=== PATIENT | male | born 1980 | race Caucasian/White ===

== ENCOUNTER 2018-03-24 14:58 | Emergency (ER) | payer MEDICARE, MEDICAID ==
[~2018-03-24 14:58] MED LIST: DIA5 PO; FLU20 PO; IBU200 PO; IBU600 PO; LOR10/325 PO; OLAN15TA18 PO; OLAN20TA17 PO; OXYM15MI14 NS; PAN20 PO; QUET50TA21 PO; [UNRECOGNIZED DRUG - CODE] PO
--- NOTE | 2018-03-24 15:03 | ER Report ---
History and Physical Time Seen By MD: 15:03 HPI/ROS 37-year-old male with a known mental health history. He has been admitted to [facility] previously. He presents to the emergency department with a friend stating that she is perseverating about witnessing a harder many years ago in [place]. Both the patient and his friend state that this is normal behavior for him, but both the patient and his friend were concerned that he may be becoming more delusional and psychotic than his baseline today. It seems as if a series of events happen today to cause him to be off his baseline. He 1st went to the police department to try to "clear his name.' He then ran into another friend of his to had handcuffs as a ruelas chain, and per the patient and his friend that makes him uncomfortable. He otherwise has no symptoms of infection. No trauma. He takes Zyprexa daily, and is compliant with medication. He denies drugs or alcohol, but admits to smoking cigarettes daily[place] who is in the emergency department with him. He does have a counselor at the [facility]. He denies SI or HI. Allergies: Coded Allergies: haloperidol (Verified Allergy, Severe, ANAPHYLAXIS, 03/24/18) Penicillins (Verified Allergy, Mild, CHILDHOOD, 03/24/18) Home Meds Active Scripts Quetiapine Fumarate (SEROQUEL) 50 Mg Tablet, 50 MG PO QHS for 30 Days Prov:LYNN TITUS MD 03/24/18 Reported Medications Hydroxyzine Hcl (HYDROXYZINE HCL) 10 Mg Tablet, 10 MG PO PRN for ANXIETY 03/24/18 Esomeprazole Magnesium (Nexium 24Hr) 20 Mg Capsule.dr, 20 MG PO QDAY 03/24/18 Olanzapine (ZYPREXA) 10 Mg Tablet, 10 MG PO HS 03/24/18 Discontinued Reported Medications Quetiapine Fumarate (Seroquel) 50 Mg Tablet, 50 MG PO QHS, 0 Refills for psychosis 06/26/10 Fluoxetine Hcl (Prozac) 20 Mg Cap, 30 MG PO QAM, #30 1 Refill 06/26/10 Olanzapine (Zyprexa) 20 Mg Tablet, 20 MG PO QHS, #30 1 Refill 06/26/10 Pantoprazole Sod (Protonix) 20 Mg Tabec, 20 MG PO BID, #60 1 Refill 06/26/10 Hx Smoking: Yes Hx Substance Use Disorder: Yes (monthly marijuana use) Hx Alcohol Use: No Constitutional Vital Sign - Last 24 Hours 03/24/18 03/24/18 03/24/18 03/24/18 14:58 15:11 15:12 15:28 Temp 99.4 Pulse ??? 103 99 Resp 12 B/P (MAP) 142/103 (116) 142/103 Pulse Ox 94 95 O2 Delivery Room Air 03/24/18 03/24/18 03/24/18 03/24/18 15:30 15:58 16:00 16:28 Pulse 91 96 B/P (MAP) 135/99 (111) 121/83 (96) Pulse Ox 93 93 Physical Exam General Appearance: The patient is alert, has no immediate need for airway protection and no current signs of toxicity. Eyes: Pupils equal and round no injection. Respiratory: Chest is non tender, lungs are clear to auscultation. Cardiac: regular rate and rhythm Gastrointestinal: Abdomen is soft and non tender, no masses, bowel sounds normal. Musculoskeletal: Neck: Neck is supple and non tender. Skin: No rashes or lesions. Psych: No SI/HI, no mynor DIFFERENTIAL DIAGNOSIS: After history and physical exam differential diagnosis was considered for SI/HI, acute psychosis, mynor, infection, toxidrome Medical Decision Making Data Points Result Diagram: 03/24/18 1616 03/24/18 1616 Laboratory Hematology Test 03/24/18 15:02 03/24/18 16:16 Urine Color Yellow Urine Clarity Clear Urine pH 7.0 pH (4.8-9.5) Urine Specific [place] 1.015 Urine Protein Negative mg/dL (NEGATIVE) Urine Glucose (UA) Negative mg/dL (NEGATIVE) Urine Ketones Negative mg/dL (NEGATIVE) Urine Blood Negative (NEGATIVE) Urine Nitrite Negative (NEGATIVE) Urine Bilirubin Negative (NEGATIVE) Urine Urobilinogen Negative mg/dL (0.2-1.9) Urine Leukocyte Esterase Negative (NEGATIVE) Urine RBC <1 /HPF (0-2/HPF) Urine WBC <1 /HPF (0-5/HPF) Urine Squamous Epithelial Cells None /LPF (</=FEW) Urine Bacteria Negative /HPF (NONE-FEW) Urine Mucus None /HPF (NONE-FEW) Urine Opiates Screen Negative Urine Barbiturates Screen Negative Ur Tricyclic Antidepressants Screen Negative Urine Phencyclidine Screen Negative Urine Amphetamines Screen Negative Urine Benzodiazepines Screen Negative Urine Cocaine Screen Negative Urine Cannabinoids Screen Negative Red Blood Count 5.24 M/uL (4.00-5.60) Mean Corpuscular Volume 94.7 fL (80.0-96.0) Mean Corpuscular Hemoglobin 32.6 pg (26.0-33.0) Mean Corpuscular Hemoglobin Concent 34.4 g/dL (32.0-36.0) Red Cell Distribution Width 13.5 % (11.5-14.5) Mean Platelet Volume 9.1 fL (7.2-11.1) Neutrophils (%) (Auto) 51.8 % (39.4-72.5) Lymphocytes (%) (Auto) 38.8 % (17.6-49.6) Monocytes (%) (Auto) 8.0 % (4.1-12.4) Eosinophils (%) (Auto) 1.0 % (0.4-6.7) Basophils (%) (Auto) 0.4 % (0.3-1.4) Nucleated RBC Relative Count (auto) 0.1 /100WBC Neutrophils # (Auto) 4.1 K/uL (2.0-7.4) Lymphocytes # (Auto) 3.1 K/uL (1.3-3.6) Monocytes # (Auto) 0.6 K/uL (0.3-1.0) Eosinophils # (Auto) 0.1 K/uL (0.0-0.5) Basophils # (Auto) 0.0 K/uL (0.0-0.1) Nucleated RBC Absolute Count (auto) 0.01 K/uL Sodium Level 141 mmol/L (137-145) Potassium Level 3.9 mmol/L (3.5-5.0) Chloride Level 108 mmol/L (98-107) Carbon Dioxide Level 27 mmol/L (22-30) Blood Urea Nitrogen 11 mg/dl (9-21) Creatinine 0.80 mg/dl (0.66-1.25) Glomerular Filtration Rate Calc > 60.0 Random Glucose 94 mg/dl (75-110) Calcium Level 9.2 mg/dl (8.4-10.2) Total Bilirubin 0.3 mg/dl (0.2-1.3) Aspartate Amino Transf (AST/SGOT) 69 U/L (0-35) Alanine Aminotransferase (ALT/SGPT) 95 U/L (0-56) Alkaline Phosphatase 101 U/L (0-126) Total Protein 7.7 g/dl (6.3-8.2) Albumin 3.9 g/dl (3.5-5.0) Chemistry Test 03/24/18 15:02 03/24/18 16:16 Urine Color Yellow Urine Clarity Clear Urine pH 7.0 pH (4.8-9.5) Urine Specific [place] 1.015 Urine Protein Negative mg/dL (NEGATIVE) Urine Glucose (UA) Negative mg/dL (NEGATIVE) Urine Ketones Negative mg/dL (NEGATIVE) Urine Blood Negative (NEGATIVE) Urine Nitrite Negative (NEGATIVE) Urine Bilirubin Negative (NEGATIVE) Urine Urobilinogen Negative mg/dL (0.2-1.9) Urine Leukocyte Esterase Negative (NEGATIVE) Urine RBC <1 /HPF (0-2/HPF) Urine WBC <1 /HPF (0-5/HPF) Urine Squamous Epithelial Cells None /LPF (</=FEW) Urine Bacteria Negative /HPF (NONE-FEW) Urine Mucus None /HPF (NONE-FEW) Urine Opiates Screen Negative Urine Barbiturates Screen Negative Ur Tricyclic Antidepressants Screen Negative Urine Phencyclidine Screen Negative Urine Amphetamines Screen Negative Urine Benzodiazepines Screen Negative Urine Cocaine Screen Negative Urine Cannabinoids Screen Negative White Blood Count 8.0 k/uL (4.5-11.0) Red Blood Count 5.24 M/uL (4.00-5.60) Hemoglobin 17.1 g/dL (14.0-18.0) Hematocrit 49.6 % (42.0-52.0) Mean Corpuscular Volume 94.7 fL (80.0-96.0) Mean Corpuscular Hemoglobin 32.6 pg (26.0-33.0) Mean Corpuscular Hemoglobin Concent 34.4 g/dL (32.0-36.0) Red Cell Distribution Width 13.5 % (11.5-14.5) Platelet Count 189 K/uL (150-450) Mean Platelet Volume 9.1 fL (7.2-11.1) Neutrophils (%) (Auto) 51.8 % (39.4-72.5) Lymphocytes (%) (Auto) 38.8 % (17.6-49.6) Monocytes (%) (Auto) 8.0 % (4.1-12.4) Eosinophils (%) (Auto) 1.0 % (0.4-6.7) Basophils (%) (Auto) 0.4 % (0.3-1.4) Nucleated RBC Relative Count (auto) 0.1 /100WBC Neutrophils # (Auto) 4.1 K/uL (2.0-7.4) Lymphocytes # (Auto) 3.1 K/uL (1.3-3.6) Monocytes # (Auto) 0.6 K/uL (0.3-1.0) Eosinophils # (Auto) 0.1 K/uL (0.0-0.5) Basophils # (Auto) 0.0 K/uL (0.0-0.1) Nucleated RBC Absolute Count (auto) 0.01 K/uL Glomerular Filtration Rate Calc > 60.0 Calcium Level 9.2 mg/dl (8.4-10.2) Total Bilirubin 0.3 mg/dl (0.2-1.3) Aspartate Amino Transf (AST/SGOT) 69 U/L (0-35) Alanine Aminotransferase (ALT/SGPT) 95 U/L (0-56) Alkaline Phosphatase 101 U/L (0-126) Total Protein 7.7 g/dl (6.3-8.2) Albumin 3.9 g/dl (3.5-5.0) Toxicology Test 03/24/18 15:02 Urine Opiates Screen Negative Urine Barbiturates Screen Negative Ur Tricyclic Antidepressants Screen Negative Urine Phencyclidine Screen Negative Urine Amphetamines Screen Negative Urine Benzodiazepines Screen Negative Urine Cocaine Screen Negative Urine Cannabinoids Screen Negative Urinalysis Test 03/24/18 15:02 Urine Color Yellow Urine Clarity Clear Urine pH 7.0 pH (4.8-9.5) Urine Specific [place] 1.015 Urine Protein Negative mg/dL (NEGATIVE) Urine Glucose (UA) Negative mg/dL (NEGATIVE) Urine Ketones Negative mg/dL (NEGATIVE) Urine Blood Negative (NEGATIVE) Urine Nitrite Negative (NEGATIVE) Urine Bilirubin Negative (NEGATIVE) Urine Urobilinogen Negative mg/dL (0.2-1.9) Urine Leukocyte Esterase Negative (NEGATIVE) Urine RBC <1 /HPF (0-2/HPF) Urine WBC <1 /HPF (0-5/HPF) Urine Squamous Epithelial Cells None /LPF (</=FEW) Urine Bacteria Negative /HPF (NONE-FEW) Urine Mucus None /HPF (NONE-FEW) ED Course/Re-evaluation ED Course This patient is a very pleasant chronically psychotic male who presented to the emergency department with a friend with an acute exacerbation of his psychosis which spontaneously resolved in the emergency department. He states that one of his problems is that he has not been sleeping at night. He dos not want to take more Zyprexa, b/c it "hurts his feet." He was amenable to adding Seroquel. He is safe for discharge with his friend. He will follow up with his [facility] Decision to Disposition Date: Mar 24, 2018 Decision to Disposition Time: 16:50 Depart Departure Latest Vital Signs Vital Signs Date Time Temp Pulse Resp B/P (MAP) Pulse Ox O2 Delivery O2 Flow Rate FiO2 03/24/18 16:28 96 93 03/24/18 16:00 121/83 (96) 03/24/18 15:12 99.4 12 Room Air Impression: Primary Impression: Psychosis Condition: Improved Disposition: HOME OR SELF-CARE New Scripts Quetiapine Fumarate (SEROQUEL) 50 Mg Tablet 50 MG PO QHS for 30 Days Prov: LYNN TITUS MD 03/24/18 Problem Qualifiers Primary Impression: Psychosis Psychosis type: unspecified psychosis type Qualified Codes: F29 - Unspecified psychosis not due to a substance or known physiological condition LYNN TITUS MD Mar 24, 2018 15:03
[2018-03-24] MEDS ORDERED: OLAN10TA21 PO (15:32)
[2018-03-24] MEDS ORDERED: HYDR10TA3 PO (15:39)
[2018-03-24] MEDS ORDERED: ESOM20CA28 PO (15:39)
[2018-03-24 16:00] VITALS: BP 121/83
[2018-03-24 16:29] LABS: PLATELET COUNT, AUTOMATED 189 K/uL (150-450)
[2018-03-24] MEDS ORDERED: QUET50TA21 PO (16:55)
== END 2018-03-24 17:00 | disposition home or self-care (01) ==
LOC: ER 15:40
DX: F29 Unspecified psychosis not due to a substance or known physiological condition (principal)
CPT/HCPCS: 80305; 81001; 82040; 82247; 82310; 82374; 82435; 82565; 82947; 84075; 84132; 84155; 84295; 84450; 84460; 84520; 85025; 99282

== ENCOUNTER → 2018-04-10 | Outpatient (CLI) | payer MEDICARE, MEDICAID ==
[~2018-04-10] MED LIST changes: +ESOM20CA28 PO; +HYDR10TA3 PO; +OLAN10TA21 PO
== END ==
LOC: LAB 11:58
PROVIDERS: ATTEND Emergency Medicine
DX: Z72.89 Other problems related to lifestyle (principal)
CPT/HCPCS: 36415; 86703